=== PATIENT | female | born 1955 | race Caucasian/White ===

== ENCOUNTER 2017-03-07 23:02 | Emergency (ER) | payer SELFPAY ==
[2017-03-07 23:39] LABS: BASO # 0.1 K/uL (0.0-0.2); BASO % 0.8 % (0.0-2.0); EOS # 0.1 K/uL (0.0-0.7); EOS % 1.4 % (0.0-4.0); HEMOGLOBIN 13.2 g/dL (11.0-16.0); LYMPH # 2.9 K/uL (1.0-4.3); LYMPH % 35.9 % (20.0-40.0); MEAN CELL VOLUME 85.2 fL (81.0-99.0); MEAN CORPUSCULAR HEMOGLOBIN 28.5 pg (27.0-31.0); MEAN CORPUSCULAR HGB CONC 33.4 g/dL (33.0-37.0); MEAN PLATELET VOLUME 7.5 fL (7.2-11.7); MONO # 0.7 K/uL (0.0-0.8); MONO % 9.3 % (0.0-10.0); NEUT # 4.2 K/uL (1.8-7.0); NEUT % 52.6 % (50.0-75.0); NRBC % 0.1 % (0.0-2.0); RBC 4.64 Mil/uL (3.80-5.20); RED CELL DISTRIBUTION WIDTH 13.3 % (11.5-14.5)
[2017-03-07 23:43] LABS: SQUAMOUS EPITHIAL 1 /hpf (0-5); URINE BACTERIA OCC (<OCC); URINE BILIRUBIN NEGATIVE (NEGATIVE); URINE BLOOD NEGATIVE (NEGATIVE); URINE CLARITY Clear (Clear); URINE COLOR Straw (YELLOW); URINE GLUCOSE (UA) NORMAL (Normal); URINE LEUKOCYTE ESTERASE 2+ Leu/uL (Negative); URINE NITRATE NEGATIVE (NEGATIVE); URINE PROTEIN NEGATIVE (NEGATIVE); URINE UROBILINOGEN NORMAL mg/dL (0.2-1.0)
[2017-03-07 23:46] LABS: ALBUMIN 4.3 g/dL (3.5-5.0)
[2017-03-07 23:48] LABS: PROTHROMBIN TIME 11.6 SECONDS (9.7-12.2)
[2017-03-07 23:49] LABS: ALB/GLOB RATIO 1.2 (1.0-2.1); AST/SGOT 23 U/L (14-36); BLOOD UREA NITROGEN 17 mg/dL (7-17); GFR AFRICAN-AMERICAN > 60; GFR NON-AFRICAN AMERICAN > 60
[2017-03-07 23:50] LABS: ALT/SGPT 31 U/L (9-52); CALCIUM 9.6 mg/dl (8.6-10.4)
[2017-03-07 23:59] LABS: B-TYPE NATRIURETIC PEPTIDE 48.8 pg/mL (0-900)
--- NOTE | 2017-03-08 00:08 | C.PDOC ---
History Of Present Illness Patient came to ED c/o intermittent b/l LE swelling. Patient was seen in [facility] [place] 3 months ago for the same and was d/c home. Patient has no PMD. Patient denies SOB , chest pain, fever, dizziness. Time Seen by Provider: 03/07/17 23:23 Chief Complaint (Nursing): Lower Extremity Problem/Injury History Per: Patient, Family History/Exam Limitations: no limitations Onset/Duration Of Symptoms: Waxing/Waning Current Symptoms Are (Timing): Still Present Severity: Moderate Pain Scale Rating Of: 1 Recent travel outside of the [place]: No Past Medical History Reviewed: Historical Data, Nursing Documentation, Vital Signs Vital Signs: Last Vital Signs Temp 97.9 F 03/07/17 23:10 Pulse 75 03/08/17 00:18 Resp 18 03/08/17 00:18 BP 124/76 03/08/17 00:18 Pulse Ox 98 03/08/17 00:18 - Medical History PMH: No Chronic Diseases Surgical History: No Surg Hx Family History: States: Unknown Family Hx - Social History Hx Alcohol Use: No Hx Substance Use: No - Immunization History Hx Tetanus Toxoid Vaccination: No Hx Influenza Vaccination: Yes Hx Pneumococcal Vaccination: No Review Of Systems Except As Marked, All Systems Reviewed And Found Negative. Musculoskeletal: Positive for: Other (LE swelling) Physical Exam - Physical Exam Appears: Well, Non-toxic, No Acute Distress Skin: Normal Color, Dry, No Rash Head: Atraumatic, Normacephalic Eye(s): bilateral: Normal Inspection Throat: Normal, No Erythema Neck: Normal, Normal ROM, Supple Chest: Symmetrical, No Deformity, No Tenderness Cardiovascular: Rhythm Regular, No Murmur Respiratory: Normal Breath Sounds, No Accessory Muscle Use Gastrointestinal/Abdominal: Normal Exam, Soft, No Tenderness Back: Normal Inspection, No Vertebral Tenderness, No Paraspinal Tenderness Extremity: Normal ROM, No Tenderness, Pedal Edema (b/l), No Calf Tenderness, Other (b/l LE with significant varicous veins) Neurological/Psych: Oriented x3, Normal Speech, Normal Cognition, Normal Motor, Normal Sensation ED Course And Treatment - Laboratory Results Result Diagrams: 03/07/17 23:35 03/07/17 23:35 O2 Sat by Pulse Oximetry: 99 - Radiology CXR: Interpreted by Me CXR Interpretation: Yes: No Acute Disease. No: Cardiomegaly Progress Note: Patient's work up didn't show any significant abnormalitis. zPatient's presentation is most likely due to the venous insufficiency. Patient was instructed to use pressure stockings and to f/u in medical Clinic within 1-2 days. Disposition - Disposition Referrals: [facility] [Outside] Service Person Service [Outside] Disposition: HOME/ ROUTINE Disposition Time: 00:06 Condition: STABLE Additional Instructions: Follow up in Clinic within 1-2 days. Return to ED if feel worse. Please use compression stockings every day. Instructions: Varicose Veins (ED), Venous Insufficiency (GEN) - Clinical Impression Clinical Impression: Venous insufficiency of both lower extremities
--- NOTE | 2017-03-08 08:54 | RAD ---
HISTORY: LE edema COMPARISON: No prior. TECHNIQUE: Chest PA and lateral FINDINGS: LUNGS: No active pulmonary disease. PLEURA: No significant pleural effusion identified. No pneumothorax apparent. CARDIOVASCULAR: Normal. OSSEOUS STRUCTURES: No significant abnormalities. VISUALIZED UPPER ABDOMEN: Normal. OTHER FINDINGS: None. IMPRESSION: No active disease.
[2017-03-08 12:17] VITALS: BP 124/76; PULSE 75; RESP 18; TEMP 97.9; O2SAT 99
== END 2017-03-08 00:18 | disposition home or self-care (01) ==
LOC: C.ER 23:02
DX: I87.2 Venous insufficiency (chronic) (peripheral) (principal)